=== PATIENT | male | born 1990 | race Caucasian/White ===

== ENCOUNTER 2022-06-29 06:15 | Observation (INO) ==
[2022-06-29 06:30] VITALS: BMI 54.3
--- NOTE | 2022-06-29 06:43 | DR.ABDMALE ---
HPI <PERRY IVY - Last Filed: 07/02/22 01:03> Time seen Time Seen by Provider: 06/29/22 06:41 PCP Primary Care Physician: MARY GIMENEZ HPI comment HPI Comment: A 31 y/o male presenting with c/o umbilical, lou-umbilical pain x 1 week. He has been waiting to get into Dr. Baig's office but the pain burnette increased over the past few days. There has been no changes in the size of the hernia, but it is looking inflammed and tender. Complaint Chief Complaint:: PT AMBULATORY IN ED WITH C/O KNOT AT UMBILICUS. STATES IT HAS BEEN THERE APPROX 6-8 MONTHS BUT HAS GOTTEN BIGGER IN THE LAST WEEK AND HURTS NOW WHEN IT HASN'T BEEN HURTING. COVID-19 Coronavirus risk:travel/contact w/high risk person: No Has patient experienced Coronavirus symptoms: No Reviewed Nurses Notes Review: Yes Source History provided by:: Pt. Mode of arrival Mode of Arrival: Ambulatory Timing Onset of Chief Complaint: 06/22/22 Came on: Gradually Location Location: Periumbilical Severity Severity: Moderate and Severe Quality Quality: Colicky Context Onset: Gradually History of: None Modifying factors Worsening Factors: Nothing Improving Factors: Nothing Associated signs and symptoms Associated Signs and Symptoms: None <ZEYAD GANDHI - Last Filed: 07/03/22 08:32> HPI comment HPI Comment: A 31 y/o male presenting with c/o umbilical, lou-umbilical pain x 1 week. He has been waiting to get into Dr. Baig's office but the pain has increased over the past few days. There has been no changes in the size of the hernia, but it is looking inflamed and tender. PMH <PERRY IVY - Last Filed: 07/02/22 01:03> PMH Past Medical History: Yes Past Medical History: Hypertension Past Surgical History: Yes Surgical History: Ortho Surgery Past Surgical History Comment: BACK X 2 Family History History of Family Medical Conditions: Yes Family Medical History: Diabetes Mellitus and Hypertension Social History Does patient currently use any type of tobacco product: Yes Have you used tobacco products in the last 12 months: Yes Type of Tobacco Use: Cigarettes Does any household member use tobacco: No Alcohol Use: None Do you use any recreational Drugs:: No Lives With: Spouse Lives Where: Home Travel Risk Coronavirus risk:travel/contact w/high risk person: No Has patient experienced Coronavirus symptoms: No Infectious screening In the last 2 months have you had wt loss of >10#?: NO Have you had fever, night sweats or hemotysis?: No Have you traveled outside the country in the last 6 months?: No Isolation: Standard ROS <[facility] Filed: 07/02/22 01:03> Review of Systems Constitutional: No Symptoms Reported Eyes: No Symptoms Reported ENTM: No Symptoms Reported Respiratoy: No Symptoms Reported Cardiovascular: No Symptoms Reported Gastrointestinal/Abdominal: Abdominal Pain (umbilical) Genitourinary: No Symptoms Reported Neurological: No Symptoms Reported Musculoskeletal: No Symptoms Reported Integumentary: No Symptoms Reported Hematologic/Lymphatic: No Symptoms Reported Endocrine: No Symptoms Reported Psychiatric: No Symptoms Reported All Other Systems: Reviewed and Negative PE <[facility] Filed: 07/02/22 01:03> Vital Signs Vital Signs: Temp Pulse Resp BP BP Pulse Ox O2 Del Method 06/03/21 11:50 162/92 06/29/22 10:45 84 99 06/29/22 10:30 176/92 06/29/22 10:30 81 96 06/29/22 10:30 176/92 06/29/22 10:15 82 100 06/29/22 10:00 79 92 L 06/29/22 10:00 170/87 06/29/22 09:45 83 98 06/29/22 09:30 85 97 06/29/22 09:30 179/91 06/29/22 09:15 80 98 06/29/22 09:00 80 97 06/29/22 09:00 171/90 06/29/22 08:45 82 99 06/29/22 08:31 163/90 06/29/22 08:31 87 98 06/29/22 08:30 91 H 95 06/29/22 08:15 79 95 06/29/22 08:01 174/81 06/29/22 08:01 81 97 06/29/22 08:00 80 96 06/29/22 07:45 85 98 06/29/22 07:30 93 H 98 06/29/22 07:30 184/96 06/29/22 07:15 82 95 06/29/22 07:00 81 96 06/29/22 07:00 163/92 06/29/22 06:51 85 97 Room Air 06/29/22 06:45 84 96 06/29/22 06:39 88 97 06/29/22 06:39 184/102 06/29/22 06:21 98.1 F 85 20 192/105 98 Room Air General Limitations: No Limitations General Appearance: Alert, In No Apparent Distress and Obese Head Head Exam: Normal Inspection, Atraumatic and Normocephalic Eyes Eye exam: Normal Appearance and EOMI ENT ENT Exam: Normal Exam, Normal Oropharynx, Normal External Ear Exam and Mucous Membranes Moist Neck Neck Exam: Normal Inspection, Full ROM and Trachea Midline Chest Chest Inspection: Normal Inspection and Symmetric Chest Wall Rise Respiratory Respiratory Exam: Normal Lung Sounds Bilat Cardiovascular Cardiovascular Exam: Regular Rate, Normal Rhythm, Normal Heart Sounds, +S1 and +S2 Abdominal Exam Abdominal Exam: Normal Inspection, Normal Bowel Sounds, Soft, Tenderness and Hernia (erythematous, tender, Umbilical hernia. ); negative Distention, Guarding, Rebound, Rigidity, Dimnished Bowel Sounds, Hyperactive Bowel Sounds, Hypoactive Bowel Sounds, Organomegaly, Trauma, Incision, Ascites, Mass, Bruit or Pulsatile Mass Abdominal Tenderness: Other (umbilicus/lou-umbilicus) Rectal Rectal Exam: Deferred Back Back Exam: Normal Inspection and Full ROM Extremeties Extremities Exam: Normal Inspection and Full ROM Exam: Male: Deferred Neurologic Neurological Exam: Alert and Oriented X3 Psychiatric Psychiatric Exam: Normal Affect and Normal Mood Skin Skin Exam: Dry, Intact and Normal Color <ZEYAD GANDHI - Last Filed: 07/03/22 08:32> Vital Signs Vital Signs: Temp Pulse Resp BP BP Pulse Ox O2 Del Method 06/03/21 11:50 162/92 06/29/22 10:45 84 99 06/29/22 10:30 176/92 06/29/22 10:30 81 96 06/29/22 10:30 176/92 06/29/22 10:15 82 100 06/29/22 10:00 79 92 L 06/29/22 10:00 170/87 06/29/22 09:45 83 98 06/29/22 09:30 85 97 06/29/22 09:30 179/91 06/29/22 09:15 80 98 06/29/22 09:00 80 97 06/29/22 09:00 171/90 06/29/22 08:45 82 99 06/29/22 08:31 163/90 06/29/22 08:31 87 98 06/29/22 08:30 91 H 95 06/29/22 08:15 79 95 06/29/22 08:01 174/81 06/29/22 08:01 81 97 06/29/22 08:00 80 96 06/29/22 07:45 85 98 06/29/22 07:30 93 H 98 06/29/22 07:30 184/96 06/29/22 07:15 82 95 06/29/22 07:00 81 96 06/29/22 07:00 163/92 06/29/22 06:51 85 97 Room Air 06/29/22 06:45 84 96 06/29/22 06:39 88 97 06/29/22 06:39 184/102 06/29/22 06:21 98.1 F 85 20 192/105 98 Room Air COURSE <PERRY IVY - Last Filed: 07/02/22 01:03> Treatment Treatment: his care was turned over to Dr. Gandhi at shift change. I had spoken to our Surgeon, Dr. Pinon and he will come over to see the pt. <ZEYAD GANDHI - Last Filed: 07/03/22 08:32> Treatment Treatment: his care was turned over to Dr. Gandhi at shift change. I had spoken to our Surgeon, Dr. Pinon and he will come over to see the pt. PATIENT SEEN BY DR. CISNEROS IN ER. WILL TAKE TO SURGERY. Consultation Consultation Comments: DR. CISNEROS IN ER EVALUATING PATIENT.HE WILL TAKE PATIENT TO SURGERY. ROR <PERRY IVY - Last Filed: 07/02/22 01:03> Labs Reviewed Result Diagrams: 06/30/22 05:20 06/30/22 05:20 Laboratory: WBC 8.7 X10^3/uL (3.6-10.0) 06/29/22 06:54 RBC 4.23 X10^6/uL (4.7-6.0) L 06/29/22 06:54 Hgb 12.8 g/dL (13.5-18.0) L 06/29/22 06:54 Hct 36.5 % (42.0-54.0) L 06/29/22 06:54 MCV 86.3 fL (80.0-100.0) 06/29/22 06:54 MCH 30.1 pg (27.0-34.0) 06/29/22 06:54 MCHC 34.9 g/dL (33.0-35.0) 06/29/22 06:54 RDW 14.6 % (11.6-16.5) 06/29/22 06:54 Plt Count 332 X10^3/uL (150.0-450.0) 06/29/22 06:54 MPV 7.5 fL (7.4-11.0) 06/29/22 06:54 Neut % (Auto) 69.5 % (42.0-75.0) 06/29/22 06:54 Lymph % (Auto) 18.6 % (21.0-51.0) L 06/29/22 06:54 [place] % (Auto) 8.2 % (0.0-13.0) 06/29/22 06:54 Eos % (Auto) 3.1 % (0.9-2.9) H 06/29/22 06:54 Baso % (Auto) 0.6 % (0.2-1.0) 06/29/22 06:54 Neut # (Auto) 6.0 x10^3/uL (2.2-4.8) H 06/29/22 06:54 Lymph # (Auto) 1.6 X10^3/uL (1.3-2.9) 06/29/22 06:54 [place] # (Auto) 0.7 x10^3/uL (0.3-0.8) 06/29/22 06:54 Eos # (Auto) 0.3 x10^3/uL (0.0-0.2) H 06/29/22 06:54 Baso # (Auto) 0.0 X10^3/uL (0.0-0.1) 06/29/22 06:54 Absolute Nucleated RBC 0.0 /100WBC 06/29/22 06:54 Sodium 141 mmol/L (136-145) 06/29/22 06:54 Corrected Sodium TNP 06/29/22 06:54 Potassium 3.4 mmol/L (3.5-5.1) L 06/29/22 06:54 Chloride 105 mmol/L (98-107) 06/29/22 06:54 Carbon Dioxide 27.5 mmol/L (21-32) 06/29/22 06:54 BUN 15 mg/dL (7-18) 06/29/22 06:54 Creatinine 1.00 mg/dL (0.70-1.30) 06/29/22 06:54 Est GFR (MDRD) Af Amer > 60 (>60) 06/29/22 06:54 Est GFR (MDRD) Non-Af > 60 (>60) 06/29/22 06:54 Glucose 95 mg/dL (65-99) 06/29/22 06:54 Calcium 7.9 mg/dL (8.5-10.1) L 06/29/22 06:54 <ZEYAD GANDHI - Last Filed: 07/03/22 08:32> Labs Reviewed Laboratory Results Reviewed?: Yes Laboratory: WBC 8.7 X10^3/uL (3.6-10.0) 06/29/22 06:54 RBC 4.23 X10^6/uL (4.7-6.0) L 06/29/22 06:54 Hgb 12.8 g/dL (13.5-18.0) L 06/29/22 06:54 Hct 36.5 % (42.0-54.0) L 06/29/22 06:54 MCV 86.3 fL (80.0-100.0) 06/29/22 06:54 MCH 30.1 pg (27.0-34.0) 06/29/22 06:54 MCHC 34.9 g/dL (33.0-35.0) 06/29/22 06:54 RDW 14.6 % (11.6-16.5) 06/29/22 06:54 Plt Count 332 X10^3/uL (150.0-450.0) 06/29/22 06:54 MPV 7.5 fL (7.4-11.0) 06/29/22 06:54 Neut % (Auto) 69.5 % (42.0-75.0) 06/29/22 06:54 Lymph % (Auto) 18.6 % (21.0-51.0) L 06/29/22 06:54 [place] % (Auto) 8.2 % (0.0-13.0) 06/29/22 06:54 Eos % (Auto) 3.1 % (0.9-2.9) H 06/29/22 06:54 Baso % (Auto) 0.6 % (0.2-1.0) 06/29/22 06:54 Neut # (Auto) 6.0 x10^3/uL (2.2-4.8) H 06/29/22 06:54 Lymph # (Auto) 1.6 X10^3/uL (1.3-2.9) 06/29/22 06:54 [place] # (Auto) 0.7 x10^3/uL (0.3-0.8) 06/29/22 06:54 Eos # (Auto) 0.3 x10^3/uL (0.0-0.2) H 06/29/22 06:54 Baso # (Auto) 0.0 X10^3/uL (0.0-0.1) 06/29/22 06:54 Absolute Nucleated RBC 0.0 /100WBC 06/29/22 06:54 Sodium 141 mmol/L (136-145) 06/29/22 06:54 Corrected Sodium TNP 06/29/22 06:54 Potassium 3.4 mmol/L (3.5-5.1) L 06/29/22 06:54 Chloride 105 mmol/L (98-107) 06/29/22 06:54 Carbon Dioxide 27.5 mmol/L (21-32) 06/29/22 06:54 BUN 15 mg/dL (7-18) 06/29/22 06:54 Creatinine 1.00 mg/dL (0.70-1.30) 06/29/22 06:54 Est GFR (MDRD) Af Amer > 60 (>60) 06/29/22 06:54 Est GFR (MDRD) Non-Af > 60 (>60) 06/29/22 06:54 Glucose 95 mg/dL (65-99) 06/29/22 06:54 Calcium 7.9 mg/dL (8.5-10.1) L 06/29/22 06:54 XRAY XRAY Interpreted by: Radiologist (REPORT NOTED.) Opioid <SHREYASOMER MUÑOZPEPPER - Last Filed: 07/02/22 01:03> Opioid Risk Tool Age (Helder box if 16-45): Yes History of Preadolescent Sexual Abuse: No Total: 1 Total Score Risk Category: Low Risk Copyright: Santana CARUSO predicting aberrant behaviors <ZEYAD GANDHI - Last Filed: 07/03/22 08:32> Opioid Risk Tool Total: 1 Total Score Risk Category: Low Risk Discharge Plan Diagnosis Discharge Problem: Umbilical hernia, incarcerated Discharge Plan Patient Disposition: ADMITTED INPATIENT Condition: Stable Orders to Discharge Patient Discharge Orders: Discharge (Routine); Ordered 06/30/22 Ordered By: HALLIE CISNEROS ADDITIONAL NOTES <PERRY IVY - Last Filed: 07/02/22 01:03> Additional Notes Additional Notes: Name: NAKITA GARCIA#: [id number]: [id number]: [id number]: MLocation: EROrder Number(s): [id number](s):ABDOMEN/PELVIS W/O CON Ordering Physician: PERRY IVY Primary Care: Mary Gimenez Service Date: 06/29/22 Service Time: 06 HISTORY Periumbilical pain STUDY CT abdomen pelvis without contrast Technique: Axial noncontrast images with coronal and sagittal reformats. Dose reduction procedures were used with mA/kv adjusted for body size. COMPARISON None FINDINGS The lung bases are clear. The the liver, spleen, adrenal glands, and pancreas are within normal limits to the limitations of an unenhanced examination. No opaque stones are present within the gallbladder. The kidneys are unobstructed. No right renal calculi are identified. There is a punctate nonobstructing left lower pole renal calculus present. No ureteral calculi are identified. The appendix is normal. There is a 6.4 by 6.3 by 6.1 cm fat containing periumbilical ventral hernia. There is induration of the fat at the orifice of and within the hernia suggestive of possible incarceration and strangulation of the fat. Expedient surgical evaluation is recommended. There are no findings suggestive of enteritis, colitis, or diverticulitis abdominal aorta is normal in caliber. No intraperitoneal or retroperitoneal lymphadenopathy of significance is identified. Examination of the pelvis demonstrated no evidence for pelvic masses, pelvic fluid, or pelvic lymphadenopathy. Nonenlarged inguinal lymphadenopathy is identified. Postsurgical changes are present in the lumbar spine with hardware present. No lytic or blastic skeletal lesions are identified. IMPRESSION 6.4 x 6.3 x 6.1 cm fat containing periumbilical ventral hernia demonstrating significant induration of the fat adjacent to the orifice of the hernia and within the hernia suggesting incarceration and strangulation of that fat. Expedient surgical evaluation is recommended. Punctate nonobstructing left renal calculus Electronically signed by: JADEN WELLINGTON (Jun 29, 2022 08:14:10) Report Electronically signed: 06/29/22 0815 CC: Perry Ivy
[2022-06-29 07:12] LABS: BASOPHILS % (AUTO) 0.6 % (0.2-1.0); EOSINOPHILS # (AUTO) 0.3 x10^3/uL (0.0-0.2); EOSINOPHILS % (AUTO) 3.1 % (0.9-2.9); HEMATOCRIT 36.5 % (42.0-54.0); HEMOGLOBIN 12.8 g/dL (13.5-18.0); LYMPHOCYTES # (AUTO) 1.6 X10^3/uL (1.3-2.9); LYMPHOCYTES % (AUTO) 18.6 % (21.0-51.0); MEAN CORPUSCULAR HEMOGLOBIN 30.1 pg (27.0-34.0); MEAN CORPUSCULAR HGB CONC 34.9 g/dL (33.0-35.0); MEAN CORPUSCULAR VOLUME 86.3 fL (80.0-100.0); MEAN PLATELET VOLUME 7.5 fL (7.4-11.0); MONOCYTES # (AUTO) 0.7 x10^3/uL (0.3-0.8); MONOCYTES % (AUTO) 8.2 % (0.0-13.0); NEUTROPHILS % (AUTO) 69.5 % (42.0-75.0); RED BLOOD COUNT 4.23 X10^6/uL (4.7-6.0); RED CELL DISTRIBUTION WIDTH 14.6 % (11.6-16.5); WHITE BLOOD COUNT 8.7 X10^3/uL (3.6-10.0)
[2022-06-29 07:16] LABS: BLOOD UREA NITROGEN 15 mg/dL (7-18); CALCIUM 7.9 mg/dL (8.5-10.1); CARBON DIOXIDE 27.5 mmol/L (21-32); CHLORIDE 105 mmol/L (98-107); SODIUM 141 mmol/L (136-145); eGFR NON BLACK RACES > 60 (>60)
--- NOTE | 2022-06-29 08:15 | CT ---
HISTORYPeriumbilical painSTUDYCT abdomen pelvis without contrastTechnique: Axial noncontrast images with coronal and sagittal reformats. Dose reduction procedures were used with mA/kv adjusted for body size.COMPARISONNoneFINDINGSThe lung bases are clear. The the liver, spleen, adrenal glands, and pancreas are within normal limits to the limitations of an unenhanced examination. No opaque stones are present within the gallbladder. The kidneys are unobstructed. No right renal calculi are identified. There is a punctate nonobstructing left lower pole renal calculus present. No ureteral calculi are identified. The appendix is normal. There is a 6.4 by 6.3 by 6.1 cm fat containing periumbilical ventral hernia. There is induration of the fat at the orifice of and within the hernia suggestive of possible incarceration and strangulation of the fat. Expedient surgical evaluation is recommended. There are no findings suggestive of enteritis, colitis, or diverticulitis abdominal aorta is normal in caliber. No intraperitoneal or retroperitoneal lymphadenopathy of significance is identified. Examination of the pelvis demonstrated no evidence for pelvic masses, pelvic fluid, or pelvic lymphadenopathy. Nonenlarged inguinal lymphadenopathy is identified. Postsurgical changes are present in the lumbar spine with hardware present. No lytic or blastic skeletal lesions are identified.IMPRESSION6.4 x 6.3 x 6.1 cm fat containing periumbilical ventral hernia demonstrating significant induration of the fat adjacent to the orifice of the hernia and within the hernia suggesting incarceration and strangulation of that fat. Expedient surgical evaluation is recommended.Punctate nonobstructing left renal calculusElectronically signed by: JADEN WELLINGTON (Jun 29, 2022 08:14:10)
--- NOTE | 2022-06-29 10:14 | RAD ---
HISTORYShortness of breathSTUDYSingle-view chestCOMPARISONNoneFINDINGSThe trachea is midline. The cardiac silhouette is enlarged with a tortuous thoracic aorta . The lungs are clear without focal infiltrate or effusion. The bony thorax is unremarkable.IMPRESSIONNo acute cardiopulmonary disease.Electronically signed by: JA MATHEW (Jun 29, 2022 10:12:42)
[2022-06-29] MEDS ORDERED: APRESOLINE INJ 20 MG VIAL IVP ONE ×3 (11:39→21:50)
[2022-06-29] MEDS ORDERED: LR 1,000 ML IV 1,000 ML IV ONE (12:29)
[2022-06-29] MEDS ORDERED: ANCEF VIAL 1 GRAM ONE (12:29)
[2022-06-29] MEDS ORDERED: NS 100 ML IV 100 ML ONE (12:30)
[2022-06-29] MEDS ORDERED: BACTROBAN TOPICAL OINT ONE (12:46)
[2022-06-29] MEDS ORDERED: POLYMYXIN B SULFATE ONE (12:46)
[2022-06-29] MEDS ORDERED: FENTANYL VIAL INJ 100 mcg ONE ×2 (12:56→12:57)
[2022-06-29] MEDS ORDERED: VERSED ONE ×2 (12:57)
[2022-06-29] MEDS ORDERED: ZOFRAN INJ 4 MG VIAL ONE (12:57)
[2022-06-29] MEDS ORDERED: REGLAN INJ 10 MG VIAL ONE (12:57)
[2022-06-29] MEDS ORDERED: ROBINUL ONE (12:57)
[2022-06-29] MEDS ORDERED: QUELICIN (OR ANECTINE) ONE (12:57)
[2022-06-29] MEDS ORDERED: XYLOCAINE 2 % (PLAIN) ONE (12:57)
[2022-06-29] MEDS ORDERED: DIPRIVAN VIAL ONE (12:57)
[2022-06-29] MEDS ORDERED: SUPRANE ONE (12:57)
[2022-06-29] MEDS ORDERED: DILAUDID INJ ONE (13:45)
[2022-06-29] MEDS ORDERED: ZOFRAN INJ 4 MG VIAL IVP PRN (14:53)
[2022-06-29] MEDS ORDERED: BARHEMSYS INJ IVP PRN (14:53)
[2022-06-29] MEDS ORDERED: PHENERGAN INJ 25 MG IM PRN (14:53)
[2022-06-29] MEDS ORDERED: REGLAN INJ 10 MG VIAL IVP PRN (14:53)
[2022-06-29] MEDS ORDERED: BENADRYL INJ 50 MG VIAL IVP PRN (14:53)
[2022-06-29] MEDS ORDERED: D5 1/2 NS 1,000 ML 1,000 ML IV SCH (14:59)
[2022-06-29] MEDS ORDERED: DILAUDID INJ IVP PRN (14:59)
[2022-06-29] MEDS: DILAUDID INJ IVP PRN ×2 (15:01→15:13)
[2022-06-29] MEDS ORDERED: CATAPRES TAB 0.1 MG PO ONE ×2 (16:02→21:50)
[2022-06-29] MEDS: ZESTORETIC 20/25 MG PO SCH (18:41)
[2022-06-29] MEDS: ANCEF VIAL 1 GRAM IVP SCH (21:44)
[2022-06-29] MEDS: NS 1,000 ML IV 1,000 ML IV SCH (21:50)
[2022-06-30] MEDS: ANCEF VIAL 1 GRAM IVP SCH (05:48)
[2022-06-30] MEDS: NS 1,000 ML IV 1,000 ML IV SCH (06:04)
[2022-06-30 06:21] LABS: BASOPHILS # (AUTO) 0.1 X10^3/uL (0.0-0.1); BASOPHILS % (AUTO) 0.5 % (0.2-1.0); EOSINOPHILS # (AUTO) 0.1 x10^3/uL (0.0-0.2); EOSINOPHILS % (AUTO) 0.9 % (0.9-2.9); HEMATOCRIT 34.8 % (42.0-54.0); HEMOGLOBIN 12.2 g/dL (13.5-18.0); LYMPHOCYTES # (AUTO) 1.5 X10^3/uL (1.3-2.9); LYMPHOCYTES % (AUTO) 12.8 % (21.0-51.0); MEAN CORPUSCULAR HEMOGLOBIN 30.2 pg (27.0-34.0); MEAN CORPUSCULAR HGB CONC 35.2 g/dL (33.0-35.0); MEAN CORPUSCULAR VOLUME 85.9 fL (80.0-100.0); MEAN PLATELET VOLUME 7.8 fL (7.4-11.0); MONOCYTES # (AUTO) 0.8 x10^3/uL (0.3-0.8); MONOCYTES % (AUTO) 6.5 % (0.0-13.0); NEUTROPHILS # (AUTO) 9.5 x10^3/uL (2.2-4.8); NEUTROPHILS % (AUTO) 79.3 % (42.0-75.0); RED BLOOD COUNT 4.05 X10^6/uL (4.7-6.0); RED CELL DISTRIBUTION WIDTH 14.7 % (11.6-16.5)
[2022-06-30 06:46] LABS: ALANINE AMINOTRANSFERASE 44 Units/L (12-78); ALBUMIN 3.2 g/dL (3.4-5.0); ALKALINE PHOSPHATASE 71 Units/L (46-116); ASPARTATE AMINO TRANSFERASE 28 Units/L (15-37); BLOOD UREA NITROGEN 12 mg/dL (7-18); CALCIUM 8.7 mg/dL (8.5-10.1); CARBON DIOXIDE 29.9 mmol/L (21-32); CHLORIDE 101 mmol/L (98-107); COR CA(FOR HYPOALB) 9.3 mg/dL (8.5-10.1); COR NA(FOR HYPERGLY) 139 mmol/L (136-145); CREATININE 0.94 mg/dL (0.70-1.30); SODIUM 139 mmol/L (136-145); TOTAL PROTEIN 6.9 g/dL (6.4-8.2); eGFR NON BLACK RACES > 60 (>60)
[2022-06-30] MEDS ORDERED: K-DUR TAB 20 MEQ PO PRN (07:19)
[2022-06-30] MEDS ORDERED: MAGNESIUM SULFATE 1 GRAM/100 mL PREMIX 1 G/100 ML BAG IV PRN (07:19)
--- NOTE | 2022-06-30 08:56 | DR.CONSULT ---
CONSULT Consultation for Day of: Date: 06/30/22 Chief Complaint Chief Complaint: Medical management of malignant hypertension Allergies Allergies Allergy/AdvReac Type Severity Reaction Status Date / Time No Known Drug Allergies Allergy Verified 06/29/22 06:31 History of Present Illness History of Present Illness: This is a pleasant 31-year-old white male who came i n for incarcerated hernia repair. Following surgery is noted his blood pressure went up to approximately 219/111 and had many elevated blood pressures above 200 with a diastolic being over 100. He was given clonidine and hydralazine and this did not lower his blood pressure significantly enough for her to be stable. I was called and I added lisinopril/HCTZ 20/25 mg daily. Over the next few niko rs blood pressure has trended down and by this morning he is much improved at 145/73. He has no previous history of hypertension but I will be having the nurses schedule a hospital follow-up with me so I can keep an eye on his blood pressure since he has no primary care doctor at this time. Patient is medically stable to be discharged home later this morning. Past Medical History Past Medical History: Hypertension Past Surgical History Surgical History: Ortho Surgery Family History Family Medical History: Diabetes Mellitus and Hypertension Social History Does patient currently use any type of tobacco product: Yes Have you used tobacco products in the last 12 months: Yes Type of Tobacco Use: Cigarettes Does any household member use tobacco: No Alcohol Use: None Drug Use: None Medications Home Medications: No Known Drug Allergies Allergy (Verified 06/29/22 06:31) New Prescriptions ciprofloxacin HCl 500 mg tablet 500 mg PO BID #20 tabs 06/30/22 [Rx] lisinopril 20 mg-hydrochlorothiazide 25 mg tablet 1 tab PO QDAY #30 tabs 06/30/22 [Rx] oxycodone-acetaminophen 5 mg-325 mg tablet (Percocet) 1 tab PO Q4H PRN #20 tabs 06/30/22 [Rx] Review of Systems Constitutional: No Symptoms Reported Eyes: No Symptoms Reported ENT: No Symptoms Reported Respiratory: No Symptoms Reported Cardiovascular: No Symptoms Reported Gastrointestinal: No Symptoms Reported Genitourinary: No Symptoms Reported Musculoskeletal: No Symptoms Reported Skin: No Symptoms Reported Neurological: No Symptoms Reported Physical Exam Vital Signs: Temperature 98.1 F Pulse Rate [Left Radial] 78 Pulse Rate 77 Respiratory Rate 20 Blood Pressure [Right Arm] 145/73 Blood Pressure 161/78 O2 Sat by Pulse Oximetry 100 Oriented: Normal, Time, Person and Place Eyes: Normal Nose: Normal Respiratory: Clear Throughout Cardiovascular: Normal : Normal Auscultation: Bowel Sounds: Normal Palpation: Normal Tenderness: Normal Skin: Normal Musculoskeletal: Normal Psychiatric: Normal Mood Description: Calm Affect: Normal Speech Pattern: Clear and Appropriate Plan (1) Malignant hypertension: Status: Acute Plan: I will continue the patient on lisinopril/HCTZ 20/25 mg daily as outpatient. His attending physician Dr. Jackson will be discharging home later this morning. I will have the nurses have him follow-up with me within 7 to 10 days for hospital follow-up for his hypertension. Thank you for the consult and allowing me to help manage this patient's uncontrolled hypertension.
[2022-06-30] MEDS ORDERED: LOVENOX INJ 40 MG SYR SC SCH (09:00)
[2022-06-30] MEDS: ZESTORETIC 20/25 MG PO SCH (09:43)
[2022-06-30 10:03] VITALS: BP 191/97
== END 2022-06-30 11:50 | disposition home or self-care (01) ==
LOC: ER 06:20 → MED/SURG 06:20
PROVIDERS: ADMIT Surgery; ATTEND Surgery
DX: I10 Essential (primary) hypertension; Z86.16 Personal history of COVID-19; R94.31 Abnormal electrocardiogram [ECG] [EKG]; Z72.0 Tobacco use; K42.0 Umbilical hernia with obstruction, without gangrene; E87.6 Hypokalemia; E66.01 Morbid (severe) obesity due to excess calories; E11.65 Type 2 diabetes mellitus with hyperglycemia